=== PATIENT | male | born 1985 | race Caucasian/White ===

== ENCOUNTER 2018-03-30 08:32 | Emergency (ER) | payer OTHER ==
[~2018-03-30] VITALS: Ht 182.9 cm; Wt 135.3 kg
[2018-03-30] MEDS ORDERED: PERCOCET 5/31 TABLET PO (12:19)
[2018-03-30] MEDS ORDERED: MEDROL DOSEPAK4 MG PO (12:19)
[2018-03-30] MEDS ORDERED: ATENOLOL25 MG PO (12:27)
[2018-03-30] MEDS ORDERED: BACLOFEN10 MG PO (12:27)
[2018-03-30] MEDS ORDERED: CLOMIPHENE CITR50 MG PO (12:28)
[2018-03-30 12:45] VITALS: BP 125/66
== END 2018-03-30 12:45 | disposition home or self-care (01) ==
LOC: EME 08:32
DX: M51.26 Other intervertebral disc displacement, lumbar region (principal); G89.29 Other chronic pain
CPT/HCPCS: 72148; 99281; 99285; J1885; J2270; J3010